=== PATIENT | male | born 1960 | race Caucasian/White ===

== ENCOUNTER → 2017-09-20 | Outpatient (CLI) | payer OTHER ==
--- NOTE | 2017-09-20 10:10 | RADIOLOGY IMAGING REPORT ---
FACILITY: [facility] PATIENT NAME: Ricardo Mckeon : 1960 MR: [id number] V: [id number] EXAM DATE: ORDERING PHYSICIAN: BELIA MEDEROS TECHNOLOGIST: Location: [facility] [place] Patient: Ricardo Mckeon : 1960 Visit/Account:[id number] Date of Sevice: 09/20/2017 Abdominal ultrasound, complete. HISTORY: Upper abdominal pain. COMPARISON: None. The liver measures 12.9 cm in sagittal length. The spleen measures 9.9 cm in length. The liver and spleen are free of focal defects. The surface of the liver is smooth. The portal vein is patent. No i ntra or extrahepatic biliary dilatation. The gallbladder is unremarkable. The sonographic Levy's si gn is negative. The pancreas is unremarkable. The kidneys are normal in size. An extrarenal pelvis i s present on the right. No yuriy hydronephrosis. No ascites. Portions of the abdominal aorta and inf erior vena cava are obscured. The common bile duct measures 5 mm in greatest AP diameter. IMPRESSION: Negative abdominal ultrasound. Report Dictated By: Norberto Quesada MD at 09/20/2017 10:04 AM Report E-Signed By: Norberto Quesada MD at 09/20/2017 10:06 AM WSN:[id number]
== END ==
LOC: US 08:28
PROVIDERS: ATTEND Family Medicine
DX: R10.9 Unspecified abdominal pain (principal)
CPT/HCPCS: 76700